=== PATIENT | female | born 1955 | race Asian ===

== ENCOUNTER 2016-10-27 10:30 | Emergency (ER) | payer OTHER ==
[2016-10-27 10:55] VITALS: TEMP 98
--- NOTE | 2016-10-27 10:55 | PDOC ---
[id number] No Limitations - History of Present Illness Initial Comments: CHIEF COMPLAINT: 61 y/o afebrile female with PMH HLD c/o left ankle pain and swelling s/p slip and fall. HISTORY OF PRESENT ILLNESS: The patient slipped on ice and sustained a left inversion ankle injury. She states she cannot walk on it secondary to pain. SHe denies head trauma, LOC, numbness/tingling in affected extremity. Vital signs on arrival are within normal limits. REVIEW OF SYSTEMS: GENERAL/CONSTITUTIONAL: No fever/chills. No weakness. No weight change. HEAD, EYES, EARS, NOSE AND THROAT: No change in vision. No ear pain or discharge. No sore throat. MUSCULOSKELETAL: +left ankle pain and swelling. No neck or back pain. SKIN: No rash or easy bruising. NEUROLOGIC: No headache, vertigo, loss of consciousness, or loss of sensation. PHYSICAL EXAM: VITAL_SIGNS: within normal limits GENERAL_APPEARANCE: alert, cooperative, moderate obvious discomfort. The patient is screaming in pain in the ER. MENTAL_STATUS: speech clear, oriented X 3, responds appropriately to questions. NEURO: motor intact and sensory intact in injured extremity. EXTREMITIES: 2+ dorsalis pedis pulse in affected extremity. B/l LE have non- pitting edema, L>R. No obvious left ankle or foot deformities. Exquisite TTP of left foot and ankle. Pt will not let me range her left ankle. No erythema, warmth, streaking. SKIN: warm, dry, good color. <Yanet Piper - Last Filed: 10/27/16 18:39> <Julio Winters - Last Filed: 10/30/16 20:18> - General Chief Complaint: Injury Stated Complaint: SLIP AND FALL Time Seen by Provider: 10/27/16 10:54 Past History - Past Medical History Diabetes: Yes (BORDERLINE) Hypercholesterolemia: Yes - Immunization History Immunization Up to Date: No - Psycho/Social/Smoking Cessation Hx Anxiety: No Suicidal Ideation: No Smoking History: Unknown if ever smoked Have you smoked in the past 12 months: No Number of Cigarettes Smoked Daily: 0 Hx Alcohol Use: No Drug/Substance Use Hx: No Substance Use Type: None <Yanet Piper - Last Filed: 10/27/16 18:39> <Julio Winters - Last Filed: 10/30/16 20:18> - Past Medical History Allergies/Adverse Reactions: Allergies Allergy/AdvReac Type Severity Reaction Status Date / Time No Known Allergies Allergy Verified 10/27/16 10:52 Home Medications: Ambulatory Orders Ondansetron [Zofran Odt -] 4 mg SL TID #10 od.tablet 10/27/16 Oxycodone HCl/Acetaminophen [Percocet 5-325 mg Tablet] 1 - 2 tab PO Q6H #20 tablet MDD 6 10/27/16 *Physical Exam - Vital Signs Last Vital Signs Temp Pulse Resp BP Pulse Ox 98 F 80 20 123/89 100 10/27/16 10:53 10/27/16 15:52 10/27/16 15:52 10/27/16 15:52 10/27/16 15:52 <Julio Winters - Last Filed: 10/30/16 20:18> Procedures - Splinting Splint Location: Left: Ankle Pre-Proc Neuro Vasc Exam: normal Hand-Made Type: orthoglass Splint Type: Yes: Sugar Tong, Posterior Post-Proc Neuro Vasc Exam: normal Sean Bandage: 3" (2), 4" (2) Sling: No Complications: No Post splint xray: Yes Good repositioning: Yes <Yanet Piper - Last Filed: 10/27/16 18:39> ED Treatment Course - Medications Given in the ED: ED Medications Discontinued Medications Generic Name Dose Route Start Last Admin Trade Name Osiris PRN Reason Stop Dose Admin Ondansetron HCl 4 mg 10/27/16 14:57 10/27/16 15:12 Zofran Injection IVPUSH 10/27/16 14:58 4 mg ONCE ONE Administration Oxycodone/Acetaminophen 1 combo 10/27/16 11:06 10/27/16 11:08 Percocet 5/325 - PO 10/27/16 11:07 1 combo ONCE ONE Administration Oxycodone/Acetaminophen 1 combo 10/27/16 12:34 10/27/16 13:43 Percocet 5/325 - PO 10/27/16 12:35 Not Given ONCE ONE <Julio Winters - Last Filed: 10/30/16 20:18> Medical Decision Making - Medical Decision Making A/P: 61 y/o afebrile female with inversion left ankle injury s/p slip and fall. Plan is as follows: 1. Xray left ankle/foot 2. PO percocet Xray left ankle/foot IMPRESSION: (wet read) Distal fibula fracture. Posterior tibia fracture with posterior angulation Spoke with Dr. Woodward's PA - he took a look at the xray, suggested sugar tong splint, post reduction xray, crutches and f/u in jackie's office on Sunday. He thinks she will most likely need surgery. Gave 1mg IV dilaudid about 20 minutes prior to reduction. Will discharge to home with rx for percocet. Gave patient instructions on how to use crutches. Instructed her absolutely non weight bearing. Instructed her to call Dr. Woodward today to set up appointment for sunday for probably surgery. The patient verbalizes understanding of all instructions, has no further questions and is awaiting discharge. 10/27/16 18:39 <Yanet Pipre - Last Filed: 10/27/16 18:39> - Medical Decision Making 10/30/16 20:18 The patient was seen and evaluated in conjunction with BART Piper under my direct supervision, ancillary studies were reviewed. I independently interviewed and evaluated the patient and I agree with the plan as outlined by BART Piper . <Julio Winters - Last Filed: 10/30/16 20:18> *DC/Admit/Observation/Transfer <Yanet Piper - Last Filed: 10/27/16 18:39> <Julio Winters - Last Filed: 10/30/16 20:18> Diagnosis at time of Disposition: Fracture of distal end of fibula Qualifiers: Encounter type: initial encounter Fracture type: closed Fracture morphology: unspecified fracture morphology Laterality: left Qualified Code(s): S82.832A - Other fracture of upper and lower end of left fibula, initial encounter for closed fracture Fracture of distal end of tibia Qualifiers: Encounter type: initial encounter Fracture type: closed Fracture morphology: unspecified fracture morphology Laterality: left Qualified Code(s): S82.302A - Unspecified fracture of lower end of left tibia, initial encounter for closed fracture - Discharge Dispostion Disposition: HOME Condition at time of disposition: Improved - Prescriptions Prescriptions: Oxycodone HCl/Acetaminophen [Percocet 5-325 mg Tablet] 1 - 2 tab PO Q6H #20 tablet MDD 6 Ondansetron [Zofran Odt -] 4 mg SL TID #10 od.tablet - Referrals Referrals: Amrik Woodward MD [Staff Physician] - (See Sunday for follow up) - Patient Instructions Printed Discharge Instructions: DI for Shinbone Fracture, How to Use Crutches Additional Instructions: Discharge Instructions: -Take Percocet as prescribed for pain; may cause drowsiness or dizziness -You may also take Motrin as well for pain with food if needed -Use crutches and do not bear weight on your left foot -Call Dr. Woodward to schedule appointment as soon as possible. - Post Discharge Activity Work/School Note: Back to Work
[2016-10-27] MEDS ORDERED: OXYCODONE/APAP 5/325MG COMBO TABLET PO ONE ×2 (11:06→12:34)
[2016-10-27] MEDS ORDERED: OXYCODONE/APAP 5/325MG COMBO TABLET ONE (11:06)
[2016-10-27] MEDS ORDERED: HYDROmorphone HCL CARPU-JECT 1 MG/1 ML DISP.SYRIN ONE (13:49)
[2016-10-27] MEDS ORDERED: ONDANSETRON 4 MG/2 ML VIAL IVPUSH ONE (14:57)
[2016-10-27] MEDS ORDERED: ONDANSETRON 4 MG/2 ML VIAL ONE ×2 (14:58→15:13)
[2016-10-27 15:53] VITALS: BP 123/89; PULSE 80
== END 2016-10-27 15:53 | disposition home or self-care (01) ==
LOC: JER 10:30
PROC: 0QSHXZZ Reposition Left Tibia, External Approach (ICD-10-PCS; principal; 2016-10-27)
PROC: 0QSKXZZ Reposition Left Fibula, External Approach (ICD-10-PCS; 2016-10-27)
DX: S82.832A Other fracture of upper and lower end of left fibula, initial encounter for closed fracture (principal); S82.302A Unspecified fracture of lower end of left tibia, initial encounter for closed fracture; W00.2XXA Other fall from one level to another due to ice and snow, initial encounter; Y93.01 Activity, walking, marching and hiking; Y92.414 Local residential or business street as the place of occurrence of the external cause
CPT/HCPCS: 73590-TC-LT; 73610-TC-LT; 73630-TC-LT; 99282-25

== ENCOUNTER 2019-03-01 17:08 | Emergency (ER) | payer OTHER ==
--- NOTE | 2019-03-01 17:20 | PDOC ---
History of Present Illness - General Chief Complaint: Pain Stated Complaint: LLQ ABD PAIN Time Seen by Provider: 03/01/19 17:20 - History of Present Illness Initial Comments: 03/01/19 17:29 Pt presents to the ED complaining of a two day history of LLQ pain. Also complaining of subjective fever. Denies nausea and vomiting or changes in bowel habits. Tolerating her normal diet. Pain is constant, moderate in severity, without radiation or aggravating factors. Pain is similar to a previous episode of diverticulitis. 03/01/19 17:31 03/01/19 17:32 Timing/Duration: unsure Past History - Past Medical History Allergies/Adverse Reactions: Allergies Allergy/AdvReac Type Severity Reaction Status Date / Time No Known Allergies Allergy Verified 03/01/19 17:21 Home Medications: Ambulatory Orders Ciprofloxacin HCl [Cipro] 500 mg PO BID #20 tablet 03/01/19 Famotidine [Pepcid] 20 mg PO DAILY #20 tablet 03/01/19 metroNIDAZOLE [Flagyl -] 500 mg PO Q8H #30 tablet 03/01/19 Diabetes: Yes (BORDERLINE) Hypercholesterolemia: Yes - Immunization History Immunization Up to Date: No - Suicide/Smoking/Psychosocial Hx Smoking History: Unknown if ever smoked Have you smoked in the past 12 months: No Number of Cigarettes Smoked Daily: 0 Hx Alcohol Use: No Drug/Substance Use Hx: No Substance Use Type: None Review of Systems - Review of Systems Able to Perform ROS?: Yes Is the patient limited Belarusian proficient: No Constitutional: Yes: Fever HEENTM: No: Symptoms Reported, See HPI, Eye Pain, Blurred Vision, Tearing, Recent change in vision, Double Vision, Cataracts, Ear Pain, Ocular Prothesis, Ear Discharge, Nose Pain, Nose Congestion, Tinnitus, Nose Bleeding, Hearing Loss , Throat Pain, Throat Swelling, Mouth Pain, Dental Problems, Difficulty Swallowing, Mouth Swelling, Other Respiratory: No: Symptoms reported, See HPI, Cough, Orthopnea, Shortness of Breath, SOB with Exertion, SOB at Rest, Stridor, Wheezing, Productive cough, Hemoptysis, Other Cardiac (ROS): No: Symptoms Reported, See HPI, Chest Pain, Edema, Irregular Heart Rate, Lightheadedness, Palpitations, Syncope, Chest Tightness, Other ABD/GI: Yes: Symptoms Reported (LLQ pain). No: Abdominal Distended, Abd. Pain w / defecation, Blood Streaked Bowels, Constipated, Diarrhea, Difficulty Swallowing, Nausea, Poor Appetite, Poor Fluid Intake, Rectal Bleeding, Vomiting , Indigestion, Abdominal cramping, Tarry Stools, Other : No: Burning, Dysuria, Discharge, Frequency, Flank Pain, Hematuria, Incontinence, Pain, Urgency, Testicular Mass, Testicular Swelling, Lesions, Testicular Pain, Other Musculoskeletal: No: Symptoms Reported, See HPI, Back Pain, Gout, Joint Pain, Joint Swelling, Muscle Pain, Muscle Weakness, Neck Pain, Joint Stiffness, Other Neurological: No: Symptoms reported, See HPI, Headache, Numbness, Paresthesia, Pre-Existing Deficit, Seizure, Tingling, Tremors, Weakness, Unsteady Gait, Ataxia, Dizziness, Other *Physical Exam - Physical Exam Comments: 03/01/19 17:34 gen: alert, NAD HEENT: normocephalic, atraumatic Cv: rrr no m/r/g Pulm: CTA b/l Abdomen: soft, non distended. + tenderness in the LLQ, without guarding or rebound. No CVA tenderness Neuro: alert and oriented x 3, normal mood and affect Skin: warm and dry. No jaundice ED Treatment Course - LABORATORY CBC & Chemistry Diagram: 03/01/19 17:40 03/01/19 17:40 Medical Decision Making - Medical Decision Making 03/01/19 17:36 Pt presents to the ED complaining of LLQ pain similar to previous episodes of diverticulitis. Patient is tender in the LLQ on my exam. Differential includes diverticulitis, abscess, less likely perforation, less likely UTI. will check labs and CT abdomen pelvis. *DC/Admit/Observation/Transfer Diagnosis at time of Disposition: Diverticulitis large intestine Qualifiers: Diverticulitis bleeding: without bleeding Diverticulitis complication: without perforation or abscess Qualified Code(s): K57.32 - Diverticulitis of large intestine without perforation or abscess without bleeding - Discharge Dispostion Disposition: HOME Condition at time of disposition: Stable Decision to Admit order: No - Prescriptions Prescriptions: Ciprofloxacin HCl [Cipro] 500 mg PO BID #20 tablet Famotidine [Pepcid] 20 mg PO DAILY #20 tablet metroNIDAZOLE [Flagyl -] 500 mg PO Q8H #30 tablet - Referrals - Patient Instructions Printed Discharge Instructions: Diverticulitis Additional Instructions: Clear liquid diet until you see your personal lines underwriter on Sunday Cipro 500 mg twice a day for 10 days Flagyl 500 mg every 8 hours for 10 days Pepcid 20 mg daily Return to ER if you have nausea/vomiting, persistent high fever, worsening abdominal pain Follow-up with your personal lines underwriter on Sunday, March 03 as scheduled Follow-up with your dipper fish within the next 1-2 weeks as discussed - Post Discharge Activity
[2019-03-01 17:30] VITALS: BP 117/80; PULSE 87; TEMP 98.9; BMI 30.1
[2019-03-01 17:56] LABS: EPITHELIAL CELLS FEW /hpf
[2019-03-01 18:05] LABS: BASO % 1.1 % (0-2.0); EOS % 2.3 % (0-4.5); HEMATOCRIT 37.9 % (32.4-45.2); HEMOGLOBIN 12.3 GM/dl (10.7-15.3); LYMPH % 27.1 % (8-40); MCH 27.9 pg (25.7-33.7); MCHC 32.4 g/dl (32.0-36.0); MEAN PLT VOLUME 8.7 fl (7.5-11.1); MONO % 7.5 % (3.8-10.2); PLATELET COUNT 246 K/MM3 (134-434); RBC 4.41 M/mm3 (3.60-5.2); RDW 12.4 % (11.6-15.6); WHITE BLOOD COUNT 9.1 K/mm3 (4.0-10.8)
[2019-03-01 18:08] LABS: BILIRUBIN,TOTAL 0.9 mg/dl (0.2-1); CALCIUM 9.4 mg/dl (8.5-10); CREATININE 0.7 mg/dl (0.55-1.3); POTASSIUM 4.1 mmol/L (3.5-5.1); TOT PROT 7.3 g/dl (6.4-8.2)
--- NOTE | 2019-03-01 19:36 | PDOC ---
*Physical Exam - Vital Signs Last Vital Signs Temp Pulse Resp BP Pulse Ox 98.9 F 87 20 117/80 99 03/01/19 17:09 03/01/19 17:09 03/01/19 17:09 03/01/19 17:09 03/01/19 17:09 ED Treatment Course - LABORATORY CBC & Chemistry Diagram: 03/01/19 17:40 03/01/19 17:40 - ADDITIONAL ORDERS Additional order review: Laboratory Results 03/01/19 03/01/19 17:40 17:40 Sodium 135 L Potassium 4.1 Chloride 102 Carbon Dioxide 26 Anion Gap 7 L BUN 9.0 Creatinine 0.7 Est GFR (CKD-EPI)AfAm 108.38 Est GFR (CKD-EPI)NonAf 93.51 Random Glucose 100 Calcium 9.4 Total Bilirubin 0.9 AST 18 ALT 15 Alkaline Phosphatase 70 Total Protein 7.3 Albumin 4.0 Urine Color Yellow Urine Appearance Clear Urine pH 6.0 Urine Protein Negative Urine Glucose (UA) Negative Urine Ketones Negative Urine Blood Trace-intact Urine Nitrite Negative Urine Bilirubin Negative Urine Urobilinogen 0.2 Ur Leukocyte Esterase Negative Urine RBC 2-5 Urine WBC 0-2 Ur Transition Epith Cell Few Urine Bacteria Few 03/01/19 17:40 RBC 4.41 MCV 86.0 MCHC 32.4 RDW 12.4 MPV 8.7 Neutrophils % 62.0 Lymphocytes % 27.1 Monocytes % 7.5 Eosinophils % 2.3 Basophils % 1.1 Progress Note - Progress Note Progress Note: Care of this patient received from Dr. Ontiveros Abdominal/pelvic CT performed. Preliminary interpretation by Imaging fabrication engineer: Wall edema and pericolonic fluid of descending and sigmoid colon consistent with acute diverticulitis. No evidence of abscess or perforation. No other acute pathology evident. There is anterior abdominal wall hernia containing fat without evidence of incarceration. 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 Results discussed with the patient. She states that she had one previous episode of acute diverticulitis for which she was treated as an outpatient. She has follow-up appointment with her director it already scheduled for Sunday, March 03. She has no ALLERGIES to antibiotics; she made note of a "sensitive stomach". Previously, she had been treated for her acute diverticulitis with either Cipro or Levaquin and Flagyl. She tolerated both these antibiotics without difficulty , apparently. Patient was given the first dose of Cipro 500 mg and Flagyl 500 mg here in the emergency room. Ten-day prescription for each of these antibiotics sent to her pharmacy. The patient also asked for medication for "acid regurgitation". She states that she has not been on any medications for this in the past. Patient was given an dose of Pepcid 20 mg now She should maintain a clear liquid diet until seen by her director it with advancement of diet as per GI. She return to the emergency room if she has vomiting/high fever/worsening abdominal pain *DC/Admit/Observation/Transfer Diagnosis at time of Disposition: Diverticulitis large intestine Qualifiers: Diverticulitis bleeding: without bleeding Diverticulitis complication: without perforation or abscess Qualified Code(s): K57.32 - Diverticulitis of large intestine without perforation or abscess without bleeding - Discharge Dispostion Disposition: HOME Condition at time of disposition: Stable - Prescriptions Prescriptions: Ciprofloxacin HCl [Cipro] 500 mg PO BID #20 tablet Famotidine [Pepcid] 20 mg PO DAILY #20 tablet metroNIDAZOLE [Flagyl -] 500 mg PO Q8H #30 tablet - Referrals - Patient Instructions Printed Discharge Instructions: Diverticulitis Additional Instructions: Clear liquid diet until you see your director it on Sunday Cipro 500 mg twice a day for 10 days Flagyl 500 mg every 8 hours for 10 days Pepcid 20 mg daily Return to ER if you have nausea/vomiting, persistent high fever, worsening abdominal pain Follow-up with your director it on Sunday, March 03 as scheduled Follow-up with your manager motor within the next 1-2 weeks as discussed - Post Discharge Activity
[2019-03-01] MEDS ORDERED: metroNIDAZOLE 250 MG TABLET PO ONE (19:54)
[2019-03-01] MEDS ORDERED: CIPROFLOXACIN 500 MG TABLET (RESTRICTED TO ID) PO ONE (19:54)
[2019-03-01] MEDS ORDERED: FAMOTIDINE 20 MG TABLET PO ONE (19:56)
[2019-03-01] MEDS ORDERED: metroNIDAZOLE 250 MG TABLET ONE (19:58)
[2019-03-01] MEDS ORDERED: CIPROFLOXACIN 250 MG TABLET (RESTRICTED TO ID) PO ONE (19:58)
[2019-03-01] MEDS ORDERED: FAMOTIDINE 20 MG TABLET ONE (19:58)
== END 2019-03-01 20:06 | disposition home or self-care (01) ==
LOC: FER 17:08
DX: K57.32 Diverticulitis of large intestine without perforation or abscess without bleeding (principal); R73.03 Prediabetes; E78.00 Pure hypercholesterolemia, unspecified
CPT/HCPCS: 36415; 74177-TC; 80053; 81003; 81015; 85025; 99283-25

== ENCOUNTER 2020-05-16 11:32 | Emergency (ER) | payer OTHER ==
--- NOTE | 2020-05-16 11:46 | PDOC ---
Attending Attestation - Resident Resident Name: ShadiaKaylee - ED Attending Attestation I have performed the following: I have examined & evaluated the patient, The case was reviewed & discussed with the resident, I agree w/resident's findings & plan, Exceptions are as noted - HPI HPI: 05/16/20 12:33 64yo female with hx of HLD and chronic lbp for which she is in PT presents for eval of a month of calf pain and then b/l knee pain - L>R which started sunday. Pt states the pain started on sunday around 1p. Denies trauma. Denies new activities. States she has been sitting more recently because of her back pain. Pt states she went to PT sunday afternoon around 4p and completed PT. States the pain has been constant. Pt denies recent travel. No rashes. No new exercises. No trips or falls. 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 No paresthesias. - Physicial Exam PE: 05/16/20 12:35 Gen: aaox3, nad heart: +s1s2 reg lungs: cta b/l abd: soft, nt/nd +bs ext: b/l medial knee ttp, b/l posterior calf ttp, L knee posterior knee ttp, no warmth, mild soft tissue swelling to the medial aspect of both knees, no redness, FROM with passive movement, limited with active secondary to pain, pulses intact, FROM of the hip in flexion, ambulated with a steady gait - Medical Decision Making 05/16/20 12:37 a/p: 64yo female with b/l calf and knee pain -xrays ordered do not show an acute fx, degeneration of the medial aspect of the knee -will also order ultrasound, duplex -tylenol for pain -will monitor and reassess 05/16/20 13:57 arthritic changes seen on the xrays of the knees pt currently in ultrasound 05/16/20 15:14 prelim ultrasound is neg 05/16/20 15:43 no dvt on ultrasound read discussed imaging findings no redness or warmth of the knee discussed pain control at home and follow up with orthopedics answered all questions son at the bedside, answered family questions as well stable for dc to home Discharge - Discharge Information Problems reviewed: Yes Clinical Impression/Diagnosis: Knee pain, bilateral Condition: Stable Disposition: HOME - Admission No - Follow up/Referral Referrals: David Mcneal MD [Staff Physician] - Harris Zaman DO [Staff Physician] - Ricardo Holman MD [Staff Physician] - - Patient Discharge Instructions Patient Printed Discharge Instructions: DI for Low Back Pain, DI for Osteoarthritis, DI for Knee Pain Additional Instructions: You were seen in the ED today for bilateral knee and calf pain. Xrays of your knees were normal Your ultrasound was also normal. There was no sign of a deep vein thrombosis. Home Care and Follow Up: - You may use over the counter medications as needed for pain at home. 650mg acetaminophen (Tylenol) or 400mg ibuprofen (Motrin or Advil) can be used every 8 hours. If needed for continued pain, these medications may be alternated every 3-4 hours. For example, if you take ibuprofen at 9am, you may take acetaminophen at noon, ibuprofen at 3pm, etc. - It is strongly recommended that you take ibuprofen with food to help prevent stomach irritation. If you are taking it for more than a day or two, you may consider taking an acid medication such as Pepcid, available over the counter, to protect your stomach. This should be taken first thing in the morning 30-60 minutes before any food or medications. - You may buy a numbing patch that contains lidocaine (the patch is 4% lidocaine) that can be placed over the areas of greatest pain. The lidocaine patch may be placed for 12 hours then removed for 12 hours. - Try using an ice pack for 20 minutes every hour or a heating pad for additional pain control. These should NOT be used over the lidocaine patch, but you may place them over the areas of pain while the patch is off. - Do not stop moving around. As much as you can tolerate, continue to do light exercise and stretching exercises. Increase your activity level as much as you can tolerate daily. - If your pain does not improve over the next week, you have been referred to for follow up. - Seek immediate medical care if you have significant worsening of your symptoms, numbness/tingling in your legs, or trouble walking. - Post Discharge Activity
--- NOTE | 2020-05-16 11:51 | PDOC ---
History of Present Illness - General Chief Complaint: Injury Stated Complaint: BOTH KNEES PAIN Time Seen by Provider: 05/16/20 11:45 - History of Present Illness Initial Comments: 05/16/20 12:36 HPI: This is a 64 y/o female with a PMH of arthritis in her lower back and hands, and HLD presenting to the ED due to three days of bilateral knee pain and swelling L>R. She says it started after she went to physical therapy for her lower back arthritis, but denies any trauma or any other obvious inciting event. The pain is constant but worse when she walks. She denies fever/chills, numbness/tingling, rash, travel, or hiking. She is also complaining of left calf pain. ROS: GENERAL/CONSTITUTIONAL: No fever/chills, weakness HEENT: No change in vision. No ear pain. No sore throat. CARDIOVASCULAR: No chest pain, palpitations RESPIRATORY: No shortness of breath, dyspnea with exertion GASTROINTESTINAL: No abdominal pain, nausea, vomiting GENITOURINARY: No dysuria, frequency, or change in urination. MUSCULOSKELETAL: Yes pain in bilateral knees L>R. Swelling in bilateral knees. SKIN: No rash or hives NEUROLOGIC: No headache, focal weakness, Strength in left knee reduced due to pain ENDOCRINE: No increased thirst. No unexplained weight loss. HEMATOLOGIC/LYMPHATIC: No anemia, easy bleeding, or history of blood clots. PMH: arthritis in her lower back and hands, HLD PSx: Denied Social Hx: Denied etoh, tobacco, drug use Meds: See nurse note Allergies: See nurse note PE: GENERAL: Awake, alert, and fully oriented, in no acute distress. HEENT: Normocephalic, atraumatic. NECK: Normal ROM and supple. No lymphadenopathy, JVD, or masses. CARDIOVASCULAR: Regular rate and rhythm, normal S1 and S2, no murmurs, rubs or gallops PULMONARY: No respiratory distress. Breath sounds equal, clear to auscultation bilaterally. No wheezes, rales or rhonchi. ABDOMEN: Soft, nontender. No guarding, no rebound. No masses EXTREMITIES: Decreased active motion in L. knee due to pain, can passively range it using her arms. Bilateral medial joint tenderness and swelling. L calf tender to palpation. No clubbing or cyanosis. Peripheral pulses intact. BACK: No focal tenderness NEUROLOGICAL: Cranial nerves II through XII grossly intact. Normal speech. Able to ambulate but limping. No lower extremity numbness/tingling. Sensation intact in bilateral lower extremities. SKIN: Warm, Dry, normal turgor, no rashes or lesions noted. Normal capillary refill. MDM: 05/16/20 13:47 - This is a 64 y/o female presenting with bilateral knee pain L>R for 3 days. - Patient is able to ambulate in the ED - Patient complaining of calf tenderness and swelling - Medial knees tender to palpation bilaterally - no fever/chills or other systemic symptoms - Will order bilateral knee XRs, duplex u/s lower extremities, tylenol for pain 05/16/20 14:22 - Knee XRs show no acute pathology. Degenerative changes. - Motrin for additional pain management 05/16/20 15:14 Ultrasound Findings: No evidence of deep venous thrombosis either lower extremity. Normal flow, compression, and augmentation bilaterally. No evidence of deep venous thrombosis or superficial venous thrombosis -Patient understands home care and pain management - Referral to ortho for follow-up - Stable to d/c with return precautions 05/16/20 18:09 Past History - Medical History Allergies/Adverse Reactions: Allergies Allergy/AdvReac Type Severity Reaction Status Date / Time No Known Allergies Allergy Verified 05/16/20 11:33 Home Medications: Ambulatory Orders Ibuprofen 400 mg PO PRN 05/16/20 COPD: No Diabetes: Yes (BORDERLINE) Hypercholesterolemia: Yes - Immunization History Immunization Up to Date: No - Psycho-Social/Smoking History Smoking History: Unknown if ever smoked Have you smoked in the past 12 months: No Number of Cigarettes Smoked Daily: 0 Discharge - Discharge Information Problems reviewed: Yes Clinical Impression/Diagnosis: Knee pain, bilateral Qualifiers: Chronicity: acute Qualified Code(s): M25.561 - Pain in right knee Condition: Stable Disposition: HOME - Follow up/Referral Referrals: Ricardo Holman MD [Staff Physician] - David Mcneal MD [Staff Physician] - Harris Zaman DO [Staff Physician] - - Patient Discharge Instructions Patient Printed Discharge Instructions: DI for Low Back Pain, DI for Osteoarthritis, DI for Knee Pain Additional Instructions: You were seen in the ED today for bilateral knee and calf pain. Xrays of your knees were normal Your ultrasound was also normal. There was no sign of a deep vein thrombosis. Home Care and Follow Up: - You may use over the counter medications as needed for pain at home. 650mg acetaminophen (Tylenol) or 400mg ibuprofen (Motrin or Advil) can be used every 8 hours. If needed for continued pain, these medications may be alternated every 3-4 hours. For example, if you take ibuprofen at 9am, you may take acetaminophen at noon, ibuprofen at 3pm, etc. - It is strongly recommended that you take ibuprofen with food to help prevent stomach irritation. If you are taking it for more than a day or two, you may consider taking an acid medication such as Pepcid, available over the counter, to protect your stomach. This should be taken first thing in the morning 30-60 minutes before any food or medications. - You may buy a numbing patch that contains lidocaine (the patch is 4% lidocaine) that can be placed over the areas of greatest pain. The lidocaine patch may be placed for 12 hours then removed for 12 hours. - Try using an ice pack for 20 minutes every hour or a heating pad for additional pain control. These should NOT be used over the lidocaine patch, but you may place them over the areas of pain while the patch is off. - Do not stop moving around. As much as you can tolerate, continue to do light exercise and stretching exercises. Increase your activity level as much as you can tolerate daily. - If your pain does not improve over the next week, you have been referred to for follow up. - Seek immediate medical care if you have significant worsening of your symptoms, numbness/tingling in your legs, or trouble walking. - Post Discharge Activity
--- OUTSIDE RECORDS SUMMARY | 2020-05-16 12:02 | XMS ---
:1955 Author Organization [facility] Support Name Relationship Address Phone UE Unavailable Unavailable Unavailable TONIO PARDO SON [address] [place] [address] Re-disclosure Warning The records that you are about to access may contain information from federally- assisted alcohol or drug abuse programs. If such information is present, then the following federally mandated warning applies: This information has been disclosed to you from records protected by federal confidentiality rules (42 CFR part 2). The federal rules prohibit you from making any further disclosure of this information unless further disclosure is expressly permitted by the written consent of the person to whom it pertains or as otherwise permitted by 42 CFR part 2. A general authorization for the release of medical or other information is NOT sufficient for this purpose. The Federal rules restrict any use of the information to criminally investigate or prosecute any alcohol or drug abuse patient.The records that you are about to access may contain highly sensitive health information, the redisclosure of which is protected by Article 27-F of the [facility] Public Health law. If you continue you may haveaccess to information: Regarding HIV / AIDS; Provided by facilities licensed or operated by the [facility] Office of Mental Health; or Provided by the [facility] Office for People With Developmental Disabilities. If such information is present, then the following [facility] mandated warning applies: This information has been disclosed to you from confidential records which are protected by state law. State law prohibits you from making any further disclosure of this information without the specific written consent of the person to whom it pertains, or as otherwise permitted by law. Any unauthorized further disclosure in violation of state law may result in a fine or senior care sentence or both. A general authorization for the release of medical or other information is NOT sufficient authorization for further disclosure. Insurance Providers Payer name Policy type Policy ID Covered Covered republican's Policy P caty / Coverage republican ID relationship to [employer] ormation type mc[employer] [id number] ESSENTIAL PLAN 1 2 [employer] [id number] SP [id number] ESSENTIAL PLAN 1 2
[2020-05-16 12:25] VITALS: BP 115/59; PULSE 75; TEMP 98.6; BMI 30.9
[2020-05-16] MEDS ORDERED: ACETAMINOPHEN 500 MG TABLET (FP) PO ONE (12:32)
[2020-05-16] MEDS ORDERED: IBUPROFEN 600 MG TABLET (FP) PO ONE ×2 (15:15→15:18)
== END 2020-05-16 15:47 | disposition home or self-care (01) ==
LOC: FER 11:32
DX: M25.561 Pain in right knee (principal); M25.562 Pain in left knee
CPT/HCPCS: 73562-TC-LT-FY; 73562-TC-RT-FY; 93970-TC; 99285-25